=== PATIENT | male | born 1965 | race Caucasian/White ===

== ENCOUNTER → 2016-07-11 | Outpatient (CLI) | payer OTHER, MEDICAID ==
[2016-07-11 09:43] LABS: CHLORIDE,CL 107 mmol/L (98-110); SODIUM,NA 140 mmol/L (136-146)
== END ==
LOC: MW.CHFP 08:49
PROVIDERS: ATTEND Student in an Organized Health Care Education/Training Program
DX: E29.1 Testicular hypofunction (principal); R74.0 Nonspecific elevation of levels of transaminase and lactic acid dehydrogenase [LDH]
CPT/HCPCS: 36415; 80053; 84402; 84403

== ENCOUNTER → 2016-07-12 | Outpatient (CLI) | payer OTHER, MEDICAID ==
--- NOTE | 2016-07-12 16:42 | MR ---
EXAM DATE: 07/12/16 PATIENT'S AGE: 50 Patient: LILY OROPEZA Facility: [place], [place] Site . Site : 1965 Study: MRI Head [id number] 11:12:51 AM Ordering Physician: Gene Head Final Report: Indication: Tinnitus. Dizziness and giddiness. Comparison: None. Technique: Multiplanar T1 weighted sequence of the head. High-resolution T1 and T2 weighted sequences of the skullbase and IAC`s. Findings: Normal brain parenchymal morphology. No abnormal ventricular dilatation. Dedicated sequences of the skullbase and IAC`s demonstrates normal course of cranial nerves 7 and 8 from the root entry zones of the fundus of the IAC`s. Normal fluid signal within the cochlea and vestibule. Normal root entry zone of the bilateral trigeminal nerves. No evidence of a mass within the cerebellopontine angles are IAC`s. Right mastoid effusion. Fluid within the right middle ear cavity. Impression: 1. Normal brain parenchymal morphology. 2. Dedicated sequences of the skullbase and IAC`s demonstrates normal course of the cranial nerves. No evidence of a mass within the cerebellopontine angles or IAC`s. 3. Right mastoid effusion. Fluid within the middle ear cavity Dictated by Aaron Mccabe MD @ Jul 12 2016 11:29AM (Electronic Signature) Report Signed by Proxy and Original Signed Document filed in the Medical Record. MTDD
== END ==
LOC: MW.MRI 09:55
PROVIDERS: ATTEND Otolaryngology
DX: H93.13 Tinnitus, bilateral (principal); R42 Dizziness and giddiness; H65.91 Unspecified nonsuppurative otitis media, right ear
CPT/HCPCS: 70551; 70551-26

== ENCOUNTER → 2016-07-16 | Outpatient (CLI) | payer OTHER, MEDICAID | LOC: MW.CHENT 12:19 | PROVIDERS: ATTEND Otolaryngology | DX: R42 Dizziness and giddiness (principal) | CPT/HCPCS: 36415; 85025 ==

== ENCOUNTER 2016-07-25 08:23 | Day surgery (SDC) | payer MEDICAID, OTHER ==
--- NOTE | 2016-07-25 07:58 | PCM.HPR ---
H & P Addendum review - H & P Addendum Review Date of Original H & P: 07/16/16 Date Reviewed: 07/25/16 Time Reviewed: 09:45 Patient was examined: No Changes
[~2016-07-25 08:23] MED LIST: Lidocaine 2% 5 ML SDV ONE; Midazolam 1 MG/ML 2 ML SDV ONE; Ondansetron 4 MG/2 ML SDV ONE; Propofol 200 MG/20 ML SDV ONE; fentaNYL 250 MCG/5 ML SDV ONE
[2016-07-25] MEDS ORDERED: Lactated Ringers 1,000 ML IV SCH (08:45)
--- NOTE | 2016-07-25 08:55 | PCM.PREANE ---
Preanesthetic Assessment - Anesthesia/Transfusion/Family Hx Anesthesia History: Prior Anesthesia Without Reaction Family History of Anesthesia Reaction: No Transfusion History: No Prior Transfusion(s) - Review of Systems General: No Symptoms Pulmonary: No Symptoms Cardiovascular: No Symptoms Gastrointestinal: No symptoms Neurological: No Symptoms Other: Reports: None - Physical Assessment NPO Status Date: 07/24/16 O2 Sat by Pulse Oximetry: 95 Respiratory Rate: 18 Vital Signs: Last Vital Signs Temp 36.2 C 07/25/16 08:39 Pulse 86 07/25/16 08:39 Resp 18 07/25/16 08:39 BP 116/61 07/25/16 08:39 Pulse Ox 95 07/25/16 08:39 Height: 1.73 m Weight: 123.377 kg ASA Class: 2 Mental Status: Alert & Oriented x3 Airway Class: Mallampati = 3 Dentition: Reports: Normal Dentition ROM/Head Extension: Full Lungs: Clear to auscultation, Normal respiratory effort Cardiovascular: Regular Rate, Regular Rhythm - Allergies Allergies/Adverse Reactions: Allergies Allergy/AdvReac Type Severity Reaction Status Date / Time Penicillins Allergy Swelling Verified 06/05/14 17:35 Sulfa (Sulfonamide Allergy Diarrhea Verified 06/05/14 17:35 Antibiotics) - Anesthesia Plan Pre-Op Medication Ordered: None - Acknowledgements Anesthesia Type Planned: General Anesthesia Pt an Appropriate Candidate for the Planned Anesthesia: Yes Alternatives and Risks of Anesthesia Discussed w Pt/Guardian: Yes Pt/Guardian Understands and Agrees with Anesthesia Plan: Yes Additional Comments: LMA or ETT for airway patency PreAnesthesia Questionnaire - Past Health History Medical/Surgical History: Denies Medical/Surgical History HEENT History: Reports: Allergic rhinitis, Sinusitis Other HEENT History: wears glasses, Cardiovascular History: Reports: High cholesterol, Hypertension Respiratory History: Reports: Asthma, Sleep apnea Other Respiratory History: uses CPAP Gastrointestinal History: Reports: GERD Other Gastrointestinal History: occasional gastric reflux Musculoskeletal History: Reports: Back pain, chronic Neurological History: Reports: Migraines, Vertigo Psychiatric History: Reports: Anxiety, Depression Endocrine/Metabolic History: Reports: Obesity/BMI 30+ Dermatologic History: Reports: Other (see below) Other Dermatologic History: rash to groin area - Past Surgical History Head Surgeries/Procedures: Reports: None HEENT Surgical History: Reports: Eye surgery Other HEENT Surgeries/Procedures: hx of corrective eye surgery Musculoskeletal Surgical History: Reports: Other (see below) Other Musculoskeletal Surgeries/Procedures:: hx wrist surgery - SUBSTANCE USE Smoking Status *Q: Never Smoker Second Hand Smoke Exposure: No Days Per Week of Alcohol Use: 0 Recreational Drug Use History: No Recreational Drug Last Use: last smoked marijuana in 1992 - HOME MEDS Home Medications: Home Meds Ascorbic Acid [Vitamin C] 1,000 mg PO DAILY 07/23/16 [History] Fish Oil/[place]-3 Fatty Acids [Fish Oil 1,000 MG] 1,000 mg PO DAILY 07/23/16 [ History] Fluticasone Propionate [Flonase Allergy Relief] 2 spray NASBOTH DAILY 07/23/16 [ History] Losartan/Hydrochlorothiazide [Losartan-HCTZ 50-12.5 MG] 1 tab PO DAILY 07/23/16 [History] Lutein 10 mg PO DAILY 07/23/16 [History] Milk Thistle 1,000 mg PO DAILY 07/23/16 [History] - CURRENT (IN HOUSE) MEDS Current Meds: Current Medications Lactated Ringer's (Ringers, Lactated) 1,000 mls @ 125 mls/hr IV ASDIRECTED [facility] Last Admin: 07/25/16 08:52 Dose: 125 mls/hr Discontinued Medications Fentanyl (Sublimaze) Confirm Administered Dose 250 mcg .ROUTE .STK-MED ONE Stop: 07/25/16 07:28 Lidocaine (Xylocaine-Mpf 2%) Confirm Administered Dose 5 ml .ROUTE .STK-MED ONE Stop: 07/25/16 07:28 Midazolam HCl (Versed 1 Mg/Ml) Confirm Administered Dose 2 mg .ROUTE .STK-MED ONE Stop: 07/25/16 07:28 Ondansetron HCl (Zofran) Confirm Administered Dose 4 mg .ROUTE .STK-MED ONE Stop: 07/25/16 07:28 Propofol (Diprivan 20 Ml) Confirm Administered Dose 200 mg .ROUTE .STK-MED ONE Stop: 07/25/16 07:28 Preanesthetic Assessment - ANESTHESIA/TRANSFUSION/FAMILY HX Family History of Anesthesia Reaction: No - PHYSICAL ASSESSMENT O2 Sat by Pulse Oximetry: 95 RR: 18 Vital Signs: Last Vital Signs Temp 36.2 C 07/25/16 08:39 Pulse 86 07/25/16 08:39 Resp 18 07/25/16 08:39 BP 116/61 07/25/16 08:39 Pulse Ox 95 07/25/16 08:39 Height: 1.73 m Weight: 123.377 kg - ALLERGIES Allergies/Adverse Reactions: Allergies Allergy/AdvReac Type Severity Reaction Status Date / Time Penicillins Allergy Swelling Verified 06/05/14 17:35 Sulfa (Sulfonamide Allergy Diarrhea Verified 06/05/14 17:35 Antibiotics)
--- NOTE | 2016-07-25 10:19 | PCM.OPNOTE ---
- General Post-Op/Procedure Note Date of Surgery/Procedure: 07/25/16 Condition: Good Free Text/Narrative:: Diagnosis: Right otitis media with effusion; hearing loss; tinnitus; vertigo Procedure: Right Myringotomy with Tympanostomy tube Surgeon : Adilene Mills MD Anesthesia: GA Anesthesiologist: Dr Douglas Date of procedure: 07/25/2016 Indications : Right otitis media with effusion. He developed otitis media subsequent to a URI. After an adequate period of observation - the middle ear fluid and his symptoms persisted. I counselled him the though tympanostomy tube will improve hearing in the Right ear - conductive element, the SNHL will persist. Effect on vertigo and tinnitus will be variable. He understands this. Findings : Right Hyperemic Tympanic membrane; Right middle ear - sero mucoid effusion. Operation Details: An informed consent for the procedure was obtained. A time out was performed and the patient was brought back to the operating room and laid supine on the operating room table. A head ring was placed. Anesthesia was administered with an LMA. The Right ear was addressed. Cerumen was cleared from the external auditory canal. An anterior inferior myringotomy incision was made in the pars tensa with a myringotomy knife. Findings are as described above. Middle ear effusion was suctioned and middle ear was irrigated with saline. An Cobos tympanostomy tube was placed with an alligator forceps. Ciprodex ear drops were instilled. A cotton wool wall was placed in the kayleen. Specimens: None IV fluids: 300 ml Blood products: None Disposition: PACU for recovery Follow up: In 1 week
[2016-07-25] MEDS ORDERED: Phenylephrine/Normal Saline 100 MCG/ML 10 ML Syringe ONE (10:24)
--- NOTE | 2016-07-25 12:19 | PCM.POSTAN ---
POST ANESTHESIA ASSESSMENT - MENTAL STATUS Mental Status: alert, oriented - RESPIRATORY Respiratory Status: respiratory rate WNL, airway patent - CARDIOVASCULAR CV Status: pulse rate WNL, blood pressure stable - GASTROINTESTINAL GI Status: no symptoms - POST OP HYDRATION Hydration Status: adequate & stable
--- NOTE | 2016-07-25 12:20 | PCM48HPAN ---
Post Anesthesia Note - EVALUATION WITHIN 48HRS OF ANESTHETIC Vital Signs in Normal Range: Yes Patient Participated in Evaluation: Yes Respiratory Function Stable: Yes Airway Patent: Yes Cardiovascular Function Stable: Yes Hydration Status Stable: Yes Pain Control Satisfactory: Yes Nausea and Vomiting Control Satisfactory: Yes Mental Status Recovered: Yes
[2016-07-25 12:37] VITALS: BP 106/60
== END 2016-07-25 12:25 | disposition home or self-care (01) ==
LOC: MW.SDS 08:23
PROVIDERS: ATTEND Otolaryngology
PROC: 099500Z Drainage of Right Middle Ear with Drainage Device, Open Approach (ICD-10-PCS; principal; 2016-07-25)
DX: H65.91 Unspecified nonsuppurative otitis media, right ear (principal); F41.9 Anxiety disorder, unspecified; F32.9 Major depressive disorder, single episode, unspecified; J45.909 Unspecified asthma, uncomplicated; H91.90 Unspecified hearing loss, unspecified ear; E78.00 Pure hypercholesterolemia, unspecified; I10 Essential (primary) hypertension; G47.33 Obstructive sleep apnea (adult) (pediatric); Z88.0 Allergy status to penicillin; Z88.2 Allergy status to sulfonamides; Z79.51 Long term (current) use of inhaled steroids; Z79.899 Other long term (current) drug therapy; Z98.890 Other specified postprocedural states
CPT/HCPCS: 69436; J2250; J2405; J3010; J7120; 00126; J2704

== ENCOUNTER 2019-09-18 15:52 | Emergency (ER) | payer OTHER, BC ==
[2019-09-18] MEDS ORDERED: Sodium Chloride 0.9% 1,000 ML IV ONE (16:32)
--- NOTE | 2019-09-18 16:39 | EDM.PDOC ---
ED HPI GENERAL MEDICAL PROBLEM - General Chief Complaint: General Stated Complaint: FEVER/CHILL/ACHES Time Seen by Provider: 09/18/19 15:53 Source of Information: Reports: Patient History Limitations: Reports: No Limitations - History of Present Illness INITIAL COMMENTS - FREE TEXT/NARRATIVE: 53-year-old male presents emergency room 10 days of nausea and diarrhea. Patient thinks he ate some bad food in [place]. Patient denies cough Duration: Day(s): (10) Location: Reports: Abdomen Quality: Reports: Ache Severity: Moderate Improves with: Reports: None Worsens with: Reports: None Context: Reports: Activity Associated Symptoms: Reports: No Other Symptoms middle abd Pain Score (Numeric/FACES): 5 - Related Data Allergies Allergy/AdvReac Type Severity Reaction Status Date / Time Penicillins Allergy Swelling Verified 09/18/19 16:31 Sulfa (Sulfonamide Allergy Diarrhea Verified 09/18/19 16:31 Antibiotics) Home Meds: Home Meds Ascorbic Acid [Vitamin C] 1,000 mg PO DAILY 07/23/16 [History] Fish Oil/[place]-3 Fatty Acids [Fish Oil 1,000 MG] 1,000 mg PO DAILY 07/23/16 [ History] Fluticasone Propionate [Flonase Allergy Relief] 2 spray NASBOTH DAILY 07/23/16 [ History] Lutein 10 mg PO DAILY 07/23/16 [History] Milk Thistle 1,000 mg PO DAILY 07/23/16 [History] Ciprofloxacin [Cipro] 750 mg PO BID #14 tab 09/18/19 [Rx] Past Medical History - Past Health History Medical/Surgical History: Denies Medical/Surgical History HEENT History: Reports: Allergic Rhinitis, Sinusitis Other HEENT History: wears glasses, Cardiovascular History: Reports: High Cholesterol, Hypertension Respiratory History: Reports: Asthma, Sleep Apnea Other Respiratory History: uses CPAP Gastrointestinal History: Reports: GERD Other Gastrointestinal History: occasional gastric reflux Musculoskeletal History: Reports: Back Pain, Chronic Neurological History: Reports: Migraines, Vertigo Psychiatric History: Reports: Anxiety, Depression Endocrine/Metabolic History: Reports: Obesity/BMI 30+ Dermatologic History: Reports: Other (See Below) Other Dermatologic History: rash to groin area - Past Surgical History HEENT Surgical History: Reports: Eye Surgery Musculoskeletal Surgical History: Reports: Other (See Below) ED ROS GENERAL - Review of Systems Review Of Systems: See Below Constitutional: Reports: No Symptoms HEENT: Reports: No Symptoms Respiratory: Reports: No Symptoms Cardiovascular: Reports: No Symptoms Endocrine: Reports: No Symptoms GI/Abdominal: Reports: No Symptoms : Reports: No Symptoms Musculoskeletal: Reports: No Symptoms Skin: Reports: No Symptoms Neurological: Reports: No Symptoms Psychiatric: Reports: No Symptoms Hematologic/Lymphatic: Reports: No Symptoms Immunologic: Reports: No Symptoms ED EXAM, GENERAL - Physical Exam Exam: See Below Exam Limited By: No Limitations General Appearance: Alert, WD/WN, No Apparent Distress Eye Exam: Bilateral Eye: Normal Fundi, Normal Inspection, PERRL, Proptosis Ears: Normal External Exam, Normal Canal, Hearing Grossly Normal, Normal TMs Throat/Mouth: Normal Inspection, Normal Lips, Normal Teeth Head: Atraumatic, Normocephalic Neck: Normal Inspection, Supple, Non-Tender, Full Range of Motion Respiratory/Chest: No Respiratory Distress, Lungs Clear, Normal Breath Sounds, No Accessory Muscle Use, Chest Non-Tender Cardiovascular: Normal Peripheral Pulses, Regular Rate, Rhythm, No JVD, No Murmur GI/Abdominal: Normal Bowel Sounds, Soft, Non-Tender, No Organomegaly, No Distention, No Abnormal Bruit, No Mass Back Exam: Normal Inspection, Full Range of Motion Extremities: Normal Inspection, Normal Range of Motion Neurological: Alert, Oriented, CN II-XII Intact, Normal Cognition, Normal Reflexes, No Motor/Sensory Deficits Psychiatric: Normal Affect, Normal Mood Skin Exam: Warm, Dry, Intact, Normal Color, No Rash Lymphatic: No Adenopathy Course - Vital Signs Last Recorded V/S: Last Vital Signs Temp 97.2 F 09/18/19 16:29 Pulse 95 09/18/19 18:05 Resp 16 09/18/19 18:05 BP 123/60 09/18/19 18:05 Pulse Ox 96 09/18/19 18:05 - Orders/Labs/Meds Labs: Laboratory Tests 09/18/19 09/18/19 09/18/19 Range/Units 16:40 16:40 18:00 WBC 7.84 (4.0-11.0) K/uL RBC 4.36 L (4.50-5.90) M/uL Hgb 14.6 (13.0-17.0) g/dL Hct 43.7 (38.0-50.0) % MCV 100.2 H (80.0-98.0) fL MCH 33.5 H (27.0-32.0) pg MCHC 33.4 (31.0-37.0) g/dL RDW Std Deviation 47.9 (28.0-62.0) fl RDW Coeff of Darcy 13 (11.0-15.0) % Plt Count 164 (150-400) K/uL MPV 11.10 (7.40-12.00) fL Neut % (Auto) 49.6 (48.0-80.0) % Lymph % (Auto) 37.1 (16.0-40.0) % [place] % (Auto) 10.6 (0.0-15.0) % Eos % (Auto) 2.3 (0.0-7.0) % Baso % (Auto) 0.4 (0.0-1.5) % Neut # (Auto) 3.9 (1.4-5.7) K/uL Lymph # (Auto) 2.9 H (0.6-2.4) K/uL [place] # (Auto) 0.8 (0.0-0.8) K/uL Eos # (Auto) 0.2 (0.0-0.7) K/uL Baso # (Auto) 0.0 (0.0-0.1) K/uL Nucleated RBC % 0.0 /100WBC Nucleated RBCs # 0 K/uL Sodium 136 (136-148) mmol/L Potassium 3.9 (3.5-5.1) mmol/L Chloride 100 (98-107) mmol/L Carbon Dioxide 25.4 (21.0-32.0) mmol/L BUN 16 (7.0-18.0) mg/dL Creatinine 1.0 (0.8-1.3) mg/dL Est Cr Clr Drug Dosing 81.70 mL/min Estimated GFR (MDRD) > 60.0 ml/min Glucose 148 H (74-106) mg/dL Calcium 8.7 (8.5-10.1) mg/dL Total Bilirubin 0.3 (0.2-1.0) mg/dL AST 71 H (15-37) IU/L ALT 145 H (14-63) IU/L Alkaline Phosphatase 61 (46-116) U/L Total Protein 7.3 (6.4-8.2) g/dL Albumin 3.5 (3.4-5.0) g/dL Globulin 3.8 (2.6-4.0) g/dL Albumin/Globulin Ratio 0.9 (0.9-1.6) Urine Color YELLOW Urine Appearance CLEAR Urine pH 6.0 (5.0-8.0) Ur Specific [place] 1.025 (1.001-1.035) Urine Protein NEGATIVE (NEGATIVE) mg/dL Urine Glucose (UA) NEGATIVE (NEGATIVE) mg/dL Urine Ketones NEGATIVE (NEGATIVE) mg/dL Urine Occult Blood NEGATIVE (NEGATIVE) Urine Nitrite NEGATIVE (NEGATIVE) Urine Bilirubin NEGATIVE (NEGATIVE) Urine Urobilinogen 0.2 (<2.0) EU/dL Ur Leukocyte Esterase NEGATIVE (NEGATIVE) SARS-CoV-2 RNA (RT-PCR) (NEGATIVE) 09/18/19 Range/Units 18:05 WBC (4.0-11.0) K/uL RBC (4.50-5.90) M/uL Hgb (13.0-17.0) g/dL Hct (38.0-50.0) % MCV (80.0-98.0) fL MCH (27.0-32.0) pg MCHC (31.0-37.0) g/dL RDW Std Deviation (28.0-62.0) fl RDW Coeff of Darcy (11.0-15.0) % Plt Count (150-400) K/uL MPV (7.40-12.00) fL Neut % (Auto) (48.0-80.0) % Lymph % (Auto) (16.0-40.0) % [place] % (Auto) (0.0-15.0) % Eos % (Auto) (0.0-7.0) % Baso % (Auto) (0.0-1.5) % Neut # (Auto) (1.4-5.7) K/uL Lymph # (Auto) (0.6-2.4) K/uL [place] # (Auto) (0.0-0.8) K/uL Eos # (Auto) (0.0-0.7) K/uL Baso # (Auto) (0.0-0.1) K/uL Nucleated RBC % /100WBC Nucleated RBCs # K/uL Sodium (136-148) mmol/L Potassium (3.5-5.1) mmol/L Chloride (98-107) mmol/L Carbon Dioxide (21.0-32.0) mmol/L BUN (7.0-18.0) mg/dL Creatinine (0.8-1.3) mg/dL Est Cr Clr Drug Dosing mL/min Estimated GFR (MDRD) ml/min Glucose (74-106) mg/dL Calcium (8.5-10.1) mg/dL Total Bilirubin (0.2-1.0) mg/dL AST (15-37) IU/L ALT (14-63) IU/L Alkaline Phosphatase (46-116) U/L Total Protein (6.4-8.2) g/dL Albumin (3.4-5.0) g/dL Globulin (2.6-4.0) g/dL Albumin/Globulin Ratio (0.9-1.6) Urine Color Urine Appearance Urine pH (5.0-8.0) Ur Specific [place] (1.001-1.035) Urine Protein (NEGATIVE) mg/dL Urine Glucose (UA) (NEGATIVE) mg/dL Urine Ketones (NEGATIVE) mg/dL Urine Occult Blood (NEGATIVE) Urine Nitrite (NEGATIVE) Urine Bilirubin (NEGATIVE) Urine Urobilinogen (<2.0) EU/dL Ur Leukocyte Esterase (NEGATIVE) SARS-CoV-2 RNA (RT-PCR) NEGATIVE (NEGATIVE) Meds: Medications Discontinued Medications Generic Name Dose Route Start Last Admin Trade Name Micheletq PRN Reason Stop Dose Admin Ciprofloxacin 500 mg 09/18/19 18:38 Ciprofloxacin Hcl PO 09/18/19 18:39 ONETIME ONE Sodium Chloride 1,000 mls @ 1,000 mls/hr 09/18/19 16:32 09/18/19 16:41 Normal Saline IV 09/18/19 17:31 1,000 mls/hr .Bolus ONE Administration Departure - Departure Time of Disposition: 18:43 Disposition: Home, Self-Care 01 Clinical Impression: Travelers' diarrhea - Discharge Information Prescriptions: Ciprofloxacin [Cipro] 750 mg PO BID #14 tab Referrals: PCP,None [Primary Care Provider] - Forms: ED Department Discharge Sepsis Event Note - Evaluation Sepsis Screening Result: No Definite Risk - Focused Exam Vital Signs: Vital Signs Temp Pulse Resp BP Pulse Ox 09/18/19 18:05 95 16 123/60 96 09/18/19 17:21 71 16 94 L 09/18/19 16:29 97.2 F 79 16 141/87 H 95 Date Exam was Performed: 09/18/19 Time Exam was Performed: 18:43
[2019-09-18 17:14] LABS: BLOOD UREA NITROGEN,BUN 16 mg/dL (7.0-18.0); CARBON DIOXIDE,CO2 25.4 mmol/L (21.0-32.0); CHLORIDE,CL 100 mmol/L (98-107); GLUCOSE RANDOM 148 mg/dL (74-106); POTASSIUM,K 3.9 mmol/L (3.5-5.1); SODIUM,NA 136 mmol/L (136-148)
[2019-09-18] MEDS ORDERED: Ciprofloxacin 500 MG Tab PO ONE (18:38)
[2019-09-18 19:08] VITALS: BP 104/61; PULSE 72
== END 2019-09-18 19:08 | disposition home or self-care (01) ==
LOC: MW.ED 15:52
DX: R19.7 Diarrhea, unspecified (principal); I10 Essential (primary) hypertension; E78.00 Pure hypercholesterolemia, unspecified; J45.909 Unspecified asthma, uncomplicated; E66.9 Obesity, unspecified; Z68.36 Body mass index [BMI] 36.0-36.9, adult; Z88.0 Allergy status to penicillin; Z88.1 Allergy status to other antibiotic agents; Z79.899 Other long term (current) drug therapy
CPT/HCPCS: 80053; 81003; 85025; 87635; 96360; 96361; 99284; A9270; J7030; 99283; U0002

== ENCOUNTER 2020-07-25 13:00 | Emergency (ER) | payer OTHER ==
--- NOTE | 2020-07-25 13:26 | PCM.EKG ---
#1 Interpretation EKG Date: 07/25/20 Time: 13:25 Rhythm: NSR Rate (Beats/Min): 78 ST-T: Normal
[2020-07-25] MEDS ORDERED: Sodium Chloride 0.9% 10 ML Syringe FLUSH PRN (13:45)
[2020-07-25] MEDS ORDERED: Sodium Chloride 0.9% 1,000 ML IV ONE (13:45)
[2020-07-25] MEDS ORDERED: Sodium Chloride 0.9% 2.5 ML Syringe FLUSH PRN (13:45)
[2020-07-25] MEDS ORDERED: Ondansetron 4 MG/2 ML SDV IVPUSH ONE (13:46)
--- NOTE | 2020-07-25 13:50 | EDM.PDOC ---
ED HPI GENERAL MEDICAL PROBLEM - General Chief Complaint: Respiratory Problem Stated Complaint: COUGHING SOB CHEST PAIN Time Seen by Provider: 07/25/20 13:10 Source of Information: Reports: Patient History Limitations: Reports: No Limitations - History of Present Illness INITIAL COMMENTS - FREE TEXT/NARRATIVE: HISTORY AND PHYSICAL: History of present illness: The patient is a 54-year-old male who presents to the emergency department with complaints of cough, sore throat, diarrhea, sinus fevers chest pain, chills, fatigue, decreased appetite, and nausea. The patient states that on Saturday he was cleaning garbage in his yard and noticed droppings. Started with the symptoms on Saturday. He states his cough is a dry cough. He took DayQuil for his throat sore throat on Saturday which did not help. He states his diarrhea seems to get worse with each day. He has not taken any medication for his diarrhea. He is unable to use his CPAP due to difficulty breathing through his nose. He has nausea and is unable to eat, however, he is trying to take in fluids. He states that on Saturday he had some mild sternal chest pain, which he did not take any medication for. Patient was seen at the [facility] this morning and had a Covid test, which was negative. Review of systems: As per history of present illness and below otherwise all systems reviewed and negative. Past medical history: As per history of present illness and as reviewed below otherwise noncontributory. Surgical history: As per history of present illness and as reviewed below otherwise noncontributor y. Social history: See social history for further information Family history: As per history of present illness and as reviewed below otherwise noncontributory. Physical exam: General: Well developed and well nourished. Alert and orientated x 3. Nontoxic in appearance and in no acute distress. Vital signs are stable and have been reviewed by me. Nursing notes were reviewed. HEENT: Atraumatic, normocephalic, pupils equal and reactive bilaterally, negative for conjunctival pallor or scleral icterus, mucous membranes moist, TMs normal bilaterally, throat clear, neck supple, nontender, trachea midline. Nasal mucosa edematous with increase redness. No drooling or trismus noted. No meningeal signs. No hot potato voice noted. Lungs: Clear to auscultation bilaterally. No wheezes, rales, or rhonchi. Chest nontender. Normal work of breathing, no accessory muscles used. Heart: S1S2, regular rate and rhythm without overt murmur, gallops, or rubs. No JVD. No peripheral edema Abdomen: Soft, nondistended, nontender. Normoactive bowel sounds. Negative for masses or costovertebral tenderness. Pelvis: Stable nontender. Hematologic: No petechiae or purpra. Mucosa appropriate color and normal nail bed color and refill. Extremities: Atraumatic, moves all extremities per self without difficulty or deficits, negative for cords or calf pain. Neurovascular unremarkable. Neuro: Awake, alert, oriented. Cranial nerves II through XII unremarkable. Cerebellum unremarkable. Motor and sensory unremarkable throughout. Exam nonfocal. Psychiatric: Mood and affect are appropriate. Normal thought process. Answering questions appropriately. Notes: *This patient was seen and evaluated during the 2019 SARS-CoV-2 novel coronavirus pandemic period. Community viral transmission is ongoing at time of this encounter and the emergency department is operating under pandemic response procedures. After discussion with patient and exam patient is agreeable to labs, x-ray, EKG, IV fluids and medication. His glucose is 433 the patient states that about 2 months ago he was told that he was prediabetic. He has been attempting to lose weight and eat healthy. His AST is 118 his ALT is 180. The patient states that he has been dealing with a fatty liver for over a year and attempting to get his enzymes down naturally. The patient's troponin is < 0.050. I have ordered an A1c. Results discussed with the patient. 10 units of regular insulin will be given subcu to patient. Patient's glucse is 342 post 10 units of regular insulin. Patient is stable for discharge. I have talked with the patient about today's findings, in addition to providing specific details for plan of care. Reassessment at the time of disposition demonstrates that the patient is in no acute distress. The patient is stable for discharge, counseling was provided and we discussed in great detail signs and symptoms that would prompt them to return to the Emergency Department. Medication, follow up and supportive care measures were reviewed and discussed. Voices understanding and is agreeable to plan of care. Denies any further questions or concerns at this time. Diagnostics: CBC, CMP, strep, troponin, EKG, CXR, A1c Therapeutics: IV fluids, Zofran, Regular insulin 10 units Prescription:Metformin 500mg BID & Doxycycline 100mg BID Impression: Diabetes Type II, New Onset Sinusitis Plan: 1. You were evaluated today on an emergent basis. Your glucose was 433 and A1c was 9. This indicates a new onset of Type II Diabetes. [facility]. Take you Metformin twice daily. This can cause more frequent stools, but your body will get use to the medication. You need to eat a healthy diet. This means staying away from breads and sugar. You are also being treated for sinusitis with Doxycycline twice daily. Take the medication as directed. 2. You can alternate Tylenol and ibuprofen as needed for pain and fever management. 3. We encourage you to follow up with your primary care provider and/or recommended specialist in the next few days for re-evaluation and further care/management. 4. If your symptoms should worsen, new symptoms develop or any of the signs and symptoms we discussed should arise please return to the emergency room or call 911 (if needed). Definitive disposition and diagnosis as appropriate pending reevaluation and review of above. Throat Pain Score (Numeric/FACES): 4 - Related Data Allergies Allergy/AdvReac Type Severity Reaction Status Date / Time Penicillins Allergy Swelling Verified 07/25/20 13:20 Sulfa (Sulfonamide Allergy Diarrhea Verified 07/25/20 13:20 Antibiotics) Home Meds: Home Meds Doxycycline [Vibramycin] 100 mg PO BID 7 Days #14 cap 07/25/20 [Rx] metFORMIN [Glucophage XR] 500 mg PO BIDMEALS 30 Days #60 tab.er 07/25/20 [Rx] Past Medical History - Past Health History Medical/Surgical History: Denies Medical/Surgical History HEENT History: Reports: Allergic Rhinitis, Sinusitis Other HEENT History: wears glasses, Cardiovascular History: Reports: High Cholesterol, Hypertension Respiratory History: Reports: Asthma, Sleep Apnea Other Respiratory History: uses CPAP Gastrointestinal History: Reports: GERD Other Gastrointestinal History: occasional gastric reflux Musculoskeletal History: Reports: Back Pain, Chronic Neurological History: Reports: Migraines, Vertigo Psychiatric History: Reports: Anxiety, Depression Endocrine/Metabolic History: Reports: Obesity/BMI 30+ Dermatologic History: Reports: Other (See Below) Other Dermatologic History: rash to groin area - Infectious Disease History Infectious Disease History: Reports: Chicken Pox - Past Surgical History Head Surgeries/Procedures: Reports: None HEENT Surgical History: Reports: Eye Surgery Other HEENT Surgeries/Procedures: hx of corrective eye surgery Musculoskeletal Surgical History: Reports: Other (See Below) Other Musculoskeletal Surgeries/Procedures:: hx wrist surgery Social & Family History - Family History Family Medical History: No Pertinent Family History - Tobacco Use Tobacco Use Status *Q: Unknown Ever Used Tobacco - Caffeine Use Caffeine Use: Reports: None - Recreational Drug Use Recreational Drug Use: No ED ROS GENERAL - Review of Systems Review Of Systems: Comprehensive ROS is negative, except as noted in HPI. ED EXAM, GENERAL - Physical Exam Exam: See Below (Dictation) Course - Vital Signs Last Recorded V/S: Last Vital Signs Temp 98.3 F 07/25/20 13:20 Pulse 83 07/25/20 13:20 Resp 17 07/25/20 13:20 BP 127/72 07/25/20 13:20 Pulse Ox 95 07/25/20 13:20 - Orders/Labs/Meds Orders: Active Orders 24 hr Category Date Time Status Blood Glucose Check, Bedside [RC] ONETIME Care 07/25/20 15:34 Active EKG 12 Lead [EKG Documentation Completion] [RC] STAT Care 07/25/20 13:48 Active Dextrose 50% in Water Med 07/25/20 15:34 Active 50 ml IV ASDIRECTED PRN Glucagon,Human Recombinant [GlucaGen] Med 07/25/20 15:34 Active 1 mg IM ASDIRECTED PRN Sodium Chloride 0.9% [Saline Flush] Med 07/25/20 13:45 Active 10 ml FLUSH ASDIRECTED PRN Sodium Chloride 0.9% [Saline Flush] Med 07/25/20 13:45 Active 2.5 ml FLUSH ASDIRECTED PRN Saline Lock Insert [OM.PC] Stat Oth 07/25/20 13:45 Ordered Medication Orders Dextrose/Water (50% Dextrose In Water 50 Ml Syringe) 50 ml IV ASDIRECTED PRN PRN Reason: Hypoglycemia Glucagon (Glucagon,Human Recombinant 1 Mg Vial) 1 mg IM ASDIRECTED PRN PRN Reason: Hypoglycemia Sodium Chloride (Sodium Chloride 0.9% 10 Ml Syringe) 10 ml FLUSH ASDIRECTED PRN PRN Reason: Keep Vein Open Last Admin: 07/25/20 14:05 Dose: 10 ml Documented by: [id number] Sodium Chloride (Sodium Chloride 0.9% 2.5 Ml Syringe) 2.5 ml FLUSH ASDIRECTED PRN PRN Reason: Keep Vein Open Last Admin: 07/25/20 14:05 Dose: 2.5 ml Documented by: [id number] Labs: Laboratory Tests 07/25/20 07/25/20 07/25/20 Range/Units 13:40 14:09 14:09 WBC 7.66 (4.0-11.0) K/uL RBC 4.08 L (4.50-5.90) M/uL Hgb 13.9 (13.0-17.0) g/dL Hct 40.9 (38.0-50.0) % MCV 100.2 H (80.0-98.0) fL MCH 34.1 H (27.0-32.0) pg MCHC 34.0 (31.0-37.0) g/dL RDW Std Deviation 47.2 (28.0-62.0) fl RDW Coeff of Darcy 13 (11.0-15.0) % Plt Count 162 (150-400) K/uL MPV 11.80 (7.40-12.00) fL Neut % (Auto) 46.7 L (48.0-80.0) % Lymph % (Auto) 41.6 H (16.0-40.0) % Jenkins % (Auto) 9.8 (0.0-15.0) % Eos % (Auto) 1.6 (0.0-7.0) % Baso % (Auto) 0.3 (0.0-1.5) % Neut # (Auto) 3.6 (1.4-5.7) K/uL Lymph # (Auto) 3.2 H (0.6-2.4) K/uL Jenkins # (Auto) 0.8 (0.0-0.8) K/uL Eos # (Auto) 0.1 (0.0-0.7) K/uL Baso # (Auto) 0.0 (0.0-0.1) K/uL Nucleated RBC % 0.0 /100WBC Nucleated RBCs # 0 K/uL Sodium 132 L (136-148) mmol/L Potassium 4.5 (3.5-5.1) mmol/L Chloride 98 (98-107) mmol/L Carbon Dioxide 25.4 (21.0-32.0) mmol/L BUN 16 (7.0-18.0) mg/dL Creatinine 1.2 (0.8-1.3) mg/dL Est Cr Clr Drug Dosing 67.29 mL/min Estimated GFR (MDRD) > 60.0 ml/min Glucose 433 H (74-106) mg/dL Hemoglobin A1c (4.5 - 6.2) % Calcium 9.0 (8.5-10.1) mg/dL Total Bilirubin 0.4 (0.2-1.0) mg/dL AST 118 H (15-37) IU/L ALT 183 H (14-63) IU/L Alkaline Phosphatase 70 (46-116) U/L Troponin I < 0.050 (0.000-0.056) ng/mL Total Protein 7.2 (6.4-8.2) g/dL Albumin 3.3 L (3.4-5.0) g/dL Globulin 3.9 (2.6-4.0) g/dL Albumin/Globulin Ratio 0.9 (0.9-1.6) Group A Strep (PCR) NOT DETECTED (NOT DETECT) 07/25/20 Range/Units 14:09 WBC (4.0-11.0) K/uL RBC (4.50-5.90) M/uL Hgb (13.0-17.0) g/dL Hct (38.0-50.0) % MCV (80.0-98.0) fL MCH (27.0-32.0) pg MCHC (31.0-37.0) g/dL RDW Std Deviation (28.0-62.0) fl RDW Coeff of Darcy (11.0-15.0) % Plt Count (150-400) K/uL MPV (7.40-12.00) fL Neut % (Auto) (48.0-80.0) % Lymph % (Auto) (16.0-40.0) % Jenkins % (Auto) (0.0-15.0) % Eos % (Auto) (0.0-7.0) % Baso % (Auto) (0.0-1.5) % Neut # (Auto) (1.4-5.7) K/uL Lymph # (Auto) (0.6-2.4) K/uL Jenkins # (Auto) (0.0-0.8) K/uL Eos # (Auto) (0.0-0.7) K/uL Baso # (Auto) (0.0-0.1) K/uL Nucleated RBC % /100WBC Nucleated RBCs # K/uL Sodium (136-148) mmol/L Potassium (3.5-5.1) mmol/L Chloride (98-107) mmol/L Carbon Dioxide (21.0-32.0) mmol/L BUN (7.0-18.0) mg/dL Creatinine (0.8-1.3) mg/dL Est Cr Clr Drug Dosing mL/min Estimated GFR (MDRD) ml/min Glucose (74-106) mg/dL Hemoglobin A1c 9.0 H (4.5 - 6.2) % Calcium (8.5-10.1) mg/dL Total Bilirubin (0.2-1.0) mg/dL AST (15-37) IU/L ALT (14-63) IU/L Alkaline Phosphatase (46-116) U/L Troponin I (0.000-0.056) ng/mL Total Protein (6.4-8.2) g/dL Albumin (3.4-5.0) g/dL Globulin (2.6-4.0) g/dL Albumin/Globulin Ratio (0.9-1.6) Group A Strep (PCR) (NOT DETECT) Meds: Medications Generic Name Dose Route Start Last Admin Trade Name Freq PRN Reason Stop Dose Admin Dextrose/Water 50 ml 07/25/20 15:34 50% Dextrose In Water 50 Ml Syringe IV ASDIRECTED PRN Hypoglycemia Glucagon 1 mg 07/25/20 15:34 Glucagon,Human Recombinant 1 Mg Vial IM ASDIRECTED PRN Hypoglycemia Sodium Chloride 10 ml 07/25/20 13:45 07/25/20 14:05 Sodium Chloride 0.9% 10 Ml Syringe FLUSH 10 ml ASDIRECTED PRN Administration Keep Vein Open Sodium Chloride 2.5 ml 07/25/20 13:45 07/25/20 14:05 Sodium Chloride 0.9% 2.5 Ml Syringe FLUSH 2.5 ml ASDIRECTED PRN Administration Keep Vein Open Discontinued Medications Generic Name Dose Route Start Last Admin Trade Name Yandel PRN Reason Stop Dose Admin Sodium Chloride 1,000 mls @ 999 mls/hr 07/25/20 13:45 07/25/20 14:04 Normal Saline IV 07/25/20 14:45 999 mls/hr .Bolus ONE Administration Insulin Human Regular 10 unit 07/25/20 15:34 07/25/20 15:51 Insulin Regular, Human 100 Units/Ml 10 Ml Vial SUBCUT 07/25/20 15:35 10 units ONETIME ONE Administration Protocol Ondansetron HCl 4 mg 07/25/20 13:46 07/25/20 14:04 Ondansetron 4 Mg/2 Ml Sdv IVPUSH 07/25/20 13:47 4 mg ONETIME ONE Administration Departure - Departure Time of Disposition: 16:32 Disposition: Home, Self-Care 01 Condition: Good Clinical Impression: Diabetes Qualifiers: Diabetes mellitus type: type 2 Sinusitis Qualifiers: Sinusitis location: maxillary - Discharge Information *PRESCRIPTION DRUG MONITORING PROGRAM REVIEWED*: Not Applicable *COPY OF PRESCRIPTION DRUG MONITORING REPORT IN PATIENT MICHELLE: Not Applicable Prescriptions: metFORMIN [Glucophage XR] 500 mg PO BIDMEALS 30 Days #60 tab.er Doxycycline [Vibramycin] 100 mg PO BID 7 Days #14 cap Referrals: Josafat Arevalo [employer] [Primary Care Provider] - Forms: ED Department Discharge Additional Instructions: The following information is given to patients seen in the emergency department who are being discharged to home. This information is to outline your options for follow-up care. We provide all patients seen in our emergency department with a follow-up referral. The need for follow-up, as well as the timing and circumstances, are variable depending upon the specifics of your emergency department visit. If you don't have a primary care physician on staff, we will provide you with a referral. We always advise you to contact your personal physician following an emergency department visit to inform them of the circumstance of the visit and for follow-up with them and/or the need for any referrals to a consulting specialist. The emergency department will also refer you to a specialist when appropriate. This referral assures that you have the opportunity for follow-up care with a specialist. All of these measure are taken in an effort to provide you with optimal care, which includes your follow-up. Under all circumstances we always encourage you to contact your private physician who remains a resource for coordinating your care. When calling for follow-up care, please make the office aware that this follow-up is from your recent emergency room visit. If for any reason you are refused follow-up, please contact the [facility] Emergency Department at and asked to speak to the emergency department charge nurse. [facility] - Primary Care [address] [place] [id number] [facility] [address] [place] [address] Plan: 1. You were evaluated today on an emergent basis. Your glucose was 433 and A1c was 9. This indicates a new onset of Type II Diabetes. [facility] the [facility]. Take you Metformin twice daily. This can cause more frequent stools, but your body will get use to the medication. You need to eat a healthy diet. This means staying away from breads and sugar. You are also being treated for sinusitis with Doxycycline twice daily. Take the medication as directed. 2. You can alternate Tylenol and ibuprofen as needed for pain and fever management. 3. We encourage you to follow up with your primary care provider and/or recommended specialist in the next few days for re-evaluation and further care/management. 4. If your symptoms should worsen, new symptoms develop or any of the signs and symptoms we discussed should arise please return to the emergency room or call 911 (if needed). Sepsis Event Note (ED) - Evaluation Sepsis Screening Result: No Definite Risk - Focused Exam Vital Signs: Vital Signs Temp Pulse Resp BP Pulse Ox 07/25/20 13:20 98.3 F 83 17 127/72 95 - My Orders Last 24 Hours: My Active Orders 07/25/20 13:45 Sodium Chloride 0.9% [Saline Flush] 10 ml FLUSH ASDIRECTED PRN Sodium Chloride 0.9% [Saline Flush] 2.5 ml FLUSH ASDIRECTED PRN Saline Lock Insert [OM.PC] Stat 07/25/20 13:48 EKG 12 Lead [EKG Documentation Completion] [RC] STAT 07/25/20 15:34 Blood Glucose Check, Bedside [RC] ONETIME Dextrose 50% in Water 50 ml IV ASDIRECTED PRN Glucagon,Human Recombinant [GlucaGen] 1 mg IM ASDIRECTED PRN - Assessment/Plan Last 24 Hours: My Active Orders 07/25/20 13:45 Sodium Chloride 0.9% [Saline Flush] 10 ml FLUSH ASDIRECTED PRN Sodium Chloride 0.9% [Saline Flush] 2.5 ml FLUSH ASDIRECTED PRN Saline Lock Insert [OM.PC] Stat 07/25/20 13:48 EKG 12 Lead [EKG Documentation Completion] [RC] STAT 07/25/20 15:34 Blood Glucose Check, Bedside [RC] ONETIME Dextrose 50% in Water 50 ml IV ASDIRECTED PRN Glucagon,Human Recombinant [GlucaGen] 1 mg IM ASDIRECTED PRN
[2020-07-25 14:40] LABS: BLOOD UREA NITROGEN,BUN 16 mg/dL (7.0-18.0); CARBON DIOXIDE,CO2 25.4 mmol/L (21.0-32.0); CHLORIDE,CL 98 mmol/L (98-107); GLUCOSE RANDOM 433 mg/dL (74-106); POTASSIUM,K 4.5 mmol/L (3.5-5.1); SODIUM,NA 132 mmol/L (136-148)
--- NOTE | 2020-07-25 14:56 | CR ---
INDICATION: cough TECHNIQUE: Chest 2 views. COMPARISON: None. FINDINGS: Cardiovascular and mediastinum: Heart size and vasculature are normal in caliber and appearance. Mediastinum is within normal limits. Lungs and pleural spaces: Lungs are clear. No sign of infiltrate or mass. No sign of pleural effusion. No pneumothorax. Bones and soft tissues: No significant findings. IMPRESSION: Unremarkable chest. Dictated by: Mnoico Wise MD @ 07/25/2020 14:54:57 (Electronically Signed)
[2020-07-25] MEDS ORDERED: Insulin Regular, Human 100 Units/ML 10 ML Vial SUBCUT ONE (15:34)
[2020-07-25] MEDS ORDERED: Glucagon,Human Recombinant 1 MG Vial IM PRN (15:34)
[2020-07-25] MEDS ORDERED: 50% Dextrose in Water 50 ML Syringe IV PRN (15:34)
[2020-07-25 15:57] VITALS: BP 127/72; PULSE 83
== END 2020-07-25 17:00 | disposition home or self-care (01) ==
LOC: MW.ED 13:00
DX: J32.0 Chronic maxillary sinusitis (principal); E11.9 Type 2 diabetes mellitus without complications; I10 Essential (primary) hypertension; J45.909 Unspecified asthma, uncomplicated; E66.9 Obesity, unspecified; Z68.41 Body mass index [BMI] 40.0-44.9, adult; Z88.0 Allergy status to penicillin; Z88.2 Allergy status to sulfonamides; Z79.84 Long term (current) use of oral hypoglycemic drugs
CPT/HCPCS: 36415; 71046; 80053; 82962; 83036; 84484; 85025; 87651; 93005; 96374; 99284; J1815; J2405; J7030

== ENCOUNTER 2021-04-21 16:09 | Emergency (ER) | payer OTHER ==
[2021-04-21] MEDS ORDERED: Ketorolac 60 MG/2 ML SDV IM ONE (20:20)
[2021-04-21] MEDS ORDERED: Ondansetron 4 MG Tab.DIS PO ONE (20:20)
--- NOTE | 2021-04-21 20:52 | EDM.PDOC ---
ED HPI GENERAL MEDICAL PROBLEM - General Chief Complaint: General Stated Complaint: slipped on ice yesterday Time Seen by Provider: 04/21/21 20:07 Source of Information: Reports: Patient History Limitations: Reports: No Limitations - History of Present Illness INITIAL COMMENTS - FREE TEXT/NARRATIVE: HISTORY AND PHYSICAL: History of present illness: The patient is a 55-year-old man who slipped on the ice yesterday falling backwards striking his right side presents with complaints of significant right shoulder pain right elbow pain and right hip pain last night, along with a headache. Patient also had nausea but no vomiting. Patient states that he had a sore throat yesterday but attributed it to being outside and breathing the cold air. The patient took 2 Aleve at 10 AM this morning. The patient states that his pain is better but his work wanted him to come to the emergency to ensure that he is okay to go back to work. Patient denies any fever, chills, change in vision, syncope or near syncope. Denies any chest pain, back pain, shortness of breath or cough. Denies any abdominal pain, vomiting, diarrhea, constipation or dysuria. Has not noted any blood in urine or stool. Patient has been eating and drinking appropriately. Review of systems: As per history of present illness and below otherwise all systems reviewed and negative. Past medical history: As per history of present illness and as reviewed below otherwise noncontributory. Surgical history: As per history of present illness and as reviewed below otherwise noncontributory. Social history: See social history for further information Family history: As per history of present illness and as reviewed below otherwise noncontributory. Physical exam: General: Well developed and well nourished. Alert and orientated x 3. Nontoxic in appearance and in no acute distress. Vital signs are stable and have been reviewed by me. Nursing notes were reviewed. HEENT: Atraumatic, normocephalic, pupils equal and reactive bilaterally, negative for conjunctival pallor or scleral icterus, mucous membranes moist, TMs normal bilaterally, throat clear, neck supple, nontender, trachea midline. No dr ooling or trismus noted. No meningeal signs. No hot potato voice noted. Lungs: Clear to auscultation bilaterally. No wheezes, rales, or rhonchi. Chest nontender. Normal work of breathing, no accessory muscles used. Heart: S1S2, regular rate and rhythm without overt murmur, gallops, or rubs. No JVD. No peripheral edema Abdomen: Soft, nondistended, generalized tenderness. Normoactive bowel sounds. Negative for masses or costovertebral tenderness. Skin: Intact, warm, dry. No lesions or rashes noted. Hematologic: No petechiae or purpra. Mucosa appropriate color and normal nail bed color and refill. Extremities: Moves all extremities per self without difficulty or deficits, negative for cords or calf pain. Right shoulder and right elbow with mild tenderness. Neurovascular unremarkable. Neuro: Awake, alert, oriented. Cranial nerves II through XII unremarkable. Cerebellum unremarkable. Motor and sensory unremarkable throughout. Exam nonfocal. Psychiatric: Mood and affect are appropriate. Normal thought process. Answering questions appropriately. Notes: *This patient was seen and evaluated during the 2019 SARS-CoV-2 novel coronavirus pandemic period. Community viral transmission is ongoing at time of this encounter and the emergency department is operating under pandemic response procedures. As stated above the patient Is a 55-year-old male who presents to the emergency department who slipped on the ice yesterday falling backwards striking his right side presents with complaints of significant right shoulder pain right elbow pain and right hip pain last night, along with a headache. Patient also had nausea but no vomiting. His exam was benign for any bruising, redness or swelling of the right shoulder, elbow and hip area. The patient's neuro exam was non focal. I have ordered a head CT, right elbow x-ray. I will treat the patient's pain with an injection of Toradol and his nausea with Zofran ODT. Right elbow x-ray Findings/Impression: Bones: Alignment is normal. Small thin bone fragment or spur is emanating from the posterior aspect of the olecranon. An acute fracture fragment is not definite but possible. No other osseous abnormality. Joint spaces: Unremarkable. No degenerative changes and no joint effusion. Soft tissues: Unremarkable. Consulted with Dr. Ratliff regarding case. I will put the patient in in right sling for the acute fracture fragment possibility and have them follow-up with an orthopedic surgeon. I will treat the patient's pain with [employer] 325/5 mg 1 every 4 hours as needed for pain. 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 The patient is agreeable with this discharge plan. Head CT IMPRESSION: Negative noncontrast head CT. The patient was informed of the negative results. Right hip x-ray IMPRESSION: Negative pelvis and right hip. Patient was informed of the negative results and that his discomfort is caused by a contusion. He could use heat or ice whatever makes this feel better. I have talked with the patient about today's findings, in addition to providing specific details for plan of care. Reassessment at the time of disposition de monstrates that the patient is in no acute distress. The patient is stable for discharge, counseling was provided and we discussed in great detail signs and symptoms that would prompt them to return to the Emergency Department. Medication, follow up and supportive care measures were reviewed and discussed. Voices understanding and is agreeable to plan of care. Denies any further questions or concerns at this time. Diagnostics: CBC, CMP, strep, Covid 19, head CT, right elbow and right hip x- ray. Therapeutics: Toradol, Zofran, right arm sling Patient to wear for joint stabilization and patient comfort until follow-up with orthopedic surgeon. Prescription: [employer] 325/5 mg 1 every 4 hours as needed for pain #12 Impression: Possible right elbow fragment fracture, contusion Plan: 1. You were evaluated today on an emergent basis. Your complaints of right elbow and hip pain were evaluated on x-ray. Your hip x-ray was normal. Your right elbow x-ray showed a bony fragment broken off. This is what is causing your elbow pain. You will need to wear an arm sling until you follow-up with an orthopedic surgeon. 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 I have given you a written prescription for [employer] 325/5 1 every 4 hours as needed for pain. This can cause constipation and if you take it I would suggest starting a stool softener. You are unable to drive while taking this medication. 2. You can alternate Tylenol and ibuprofen as needed for pain and fever management. 3. We encourage you to follow up with your primary care provider and/or recommended specialist in the next few days for re-evaluation and further care/management. 4. If your symptoms should worsen, new symptoms develop or any of the signs and symptoms we discussed should arise please return to the emergency room or call 911 (if needed). Definitive disposition and diagnosis as appropriate pending reevaluation and review of above. - Related Data Allergies Allergy/AdvReac Type Severity Reaction Status Date / Time Penicillins Allergy Swelling Verified 04/21/21 17:13 Sulfa (Sulfonamide Allergy Diarrhea Verified 04/21/21 17:13 Antibiotics) Home Meds: Home Meds . [No Known Home Meds] 04/21/21 [History] Past Medical History - Past Health History Medical/Surgical History: Denies Medical/Surgical History HEENT History: Reports: Allergic Rhinitis, Sinusitis Other HEENT History: wears glasses, Cardiovascular History: Reports: High Cholesterol, Hypertension Respiratory History: Reports: Asthma, Sleep Apnea Other Respiratory History: uses CPAP Gastrointestinal History: Reports: GERD Other Gastrointestinal History: occasional gastric reflux Musculoskeletal History: Reports: Back Pain, Chronic Neurological History: Reports: Migraines, Vertigo Psychiatric History: Reports: Anxiety, Depression Endocrine/Metabolic History: Reports: Obesity/BMI 30+ Dermatologic History: Reports: Other (See Below) Other Dermatologic History: rash to groin area - Infectious Disease History Infectious Disease History: Reports: Chicken Pox - Past Surgical History Head Surgeries/Procedures: Reports: None HEENT Surgical History: Reports: Eye Surgery Other HEENT Surgeries/Procedures: hx of corrective eye surgery Musculoskeletal Surgical History: Reports: Other (See Below) Other Musculoskeletal Surgeries/Procedures:: hx wrist surgery Social & Family History - Family History Family Medical History: No Pertinent Family History - Tobacco Use Tobacco Use Status *Q: Never Tobacco User Second Hand Smoke Exposure: Yes - Caffeine Use Caffeine Use: Reports: None - Recreational Drug Use Recreational Drug Use: No ED ROS GENERAL - Review of Systems Review Of Systems: Comprehensive ROS is negative, except as noted in HPI. ED EXAM, GENERAL - Physical Exam Exam: See Below (See dictation) Course - Vital Signs Last Recorded V/S: Last Vital Signs Temp 97.7 F 04/21/21 17:14 Pulse 81 04/21/21 22:00 Resp 20 04/21/21 22:00 BP 131/95 H 04/21/21 22:00 Pulse Ox 99 04/21/21 22:00 - Orders/Labs/Meds Orders: Active Orders 24 hr Category Date Time Status DME for Discharge [COMM] Stat Oth 04/21/21 21:56 Ordered Labs: Laboratory Tests 04/21/21 04/21/21 04/21/21 Range/Units 20:31 20:31 20:34 WBC 7.70 (4.0-11.0) K/uL RBC 4.30 L (4.50-5.90) M/uL Hgb 14.8 (13.0-17.0) g/dL Hct 42.6 (38.0-50.0) % MCV 99.1 H (80.0-98.0) fL MCH 34.4 H (27.0-32.0) pg MCHC 34.7 (31.0-37.0) g/dL RDW Std Deviation 46.4 (28.0-62.0) fl RDW Coeff of Darcy 13 (11.0-15.0) % Plt Count 174 (150-400) K/uL MPV 11.10 (7.40-12.00) fL Neut % (Auto) 40.2 L (48.0-80.0) % Lymph % (Auto) 44.5 H (16.0-40.0) % Turner % (Auto) 12.3 (0.0-15.0) % Eos % (Auto) 2.6 (0.0-7.0) % Baso % (Auto) 0.4 (0.0-1.5) % Neut # (Auto) 3.1 (1.4-5.7) K/uL Lymph # (Auto) 3.4 H (0.6-2.4) K/uL Turner # (Auto) 1.0 H (0.0-0.8) K/uL Eos # (Auto) 0.2 (0.0-0.7) K/uL Baso # (Auto) 0.0 (0.0-0.1) K/uL Nucleated RBC % 0.0 /100WBC Nucleated RBCs # 0 K/uL Sodium 139 (136-148) mmol/L Potassium 4.2 (3.5-5.1) mmol/L Chloride 103 (98-107) mmol/L Carbon Dioxide 26.4 (21.0-32.0) mmol/L BUN 18 (7.0-18.0) mg/dL Creatinine 1.0 (0.8-1.3) mg/dL Est Cr Clr Drug Dosing 79.80 mL/min Estimated GFR (MDRD) > 60.0 ml/min Glucose 146 H (74-106) mg/dL Calcium 9.2 (8.5-10.1) mg/dL Total Bilirubin 0.3 (0.2-1.0) mg/dL AST 50 H (15-37) IU/L ALT 96 H (14-63) IU/L Alkaline Phosphatase 71 (46-116) U/L Total Protein 7.5 (6.4-8.2) g/dL Albumin 3.6 (3.4-5.0) g/dL Globulin 3.9 (2.6-4.0) g/dL Albumin/Globulin Ratio 0.9 (0.9-1.6) Influenza Type A RNA NEGATIVE (NEGATIVE) Influenza Type B RNA NEGATIVE (NEGATIVE) SARS-CoV-2 RNA (CODIE) NEGATIVE (NEGATIVE) Group A Strep (PCR) (NOT DETECT) 04/21/21 Range/Units 20:34 WBC (4.0-11.0) K/uL RBC (4.50-5.90) M/uL Hgb (13.0-17.0) g/dL Hct (38.0-50.0) % MCV (80.0-98.0) fL MCH (27.0-32.0) pg MCHC (31.0-37.0) g/dL RDW Std Deviation (28.0-62.0) fl RDW Coeff of Darcy (11.0-15.0) % Plt Count (150-400) K/uL MPV (7.40-12.00) fL Neut % (Auto) (48.0-80.0) % Lymph % (Auto) (16.0-40.0) % Turner % (Auto) (0.0-15.0) % Eos % (Auto) (0.0-7.0) % Baso % (Auto) (0.0-1.5) % Neut # (Auto) (1.4-5.7) K/uL Lymph # (Auto) (0.6-2.4) K/uL Turner # (Auto) (0.0-0.8) K/uL Eos # (Auto) (0.0-0.7) K/uL Baso # (Auto) (0.0-0.1) K/uL Nucleated RBC % /100WBC Nucleated RBCs # K/uL Sodium (136-148) mmol/L Potassium (3.5-5.1) mmol/L Chloride (98-107) mmol/L Carbon Dioxide (21.0-32.0) mmol/L BUN (7.0-18.0) mg/dL Creatinine (0.8-1.3) mg/dL Est Cr Clr Drug Dosing mL/min Estimated GFR (MDRD) ml/min Glucose (74-106) mg/dL Calcium (8.5-10.1) mg/dL Total Bilirubin (0.2-1.0) mg/dL AST (15-37) IU/L ALT (14-63) IU/L Alkaline Phosphatase (46-116) U/L Total Protein (6.4-8.2) g/dL Albumin (3.4-5.0) g/dL Globulin (2.6-4.0) g/dL Albumin/Globulin Ratio (0.9-1.6) Influenza Type A RNA (NEGATIVE) Influenza Type B RNA (NEGATIVE) SARS-CoV-2 RNA (CODIE) (NEGATIVE) Group A Strep (PCR) NOT DETECTED (NOT DETECT) Meds: Medications Discontinued Medications Generic Name Dose Route Start Last Admin Trade Name Freq PRN Reason Stop Dose Admin Hydrocodone Bitart/Acetaminophen 1 tab 04/21/21 21:48 04/21/21 22:14 Acetaminophen/Hydrocodone 325-10 Mg Tab PO 04/21/21 21:49 1 tab ONETIME ONE Administration Ketorolac Tromethamine 60 mg 04/21/21 20:20 04/21/21 20:31 Ketorolac 60 Mg/2 Ml Sdv IM 04/21/21 20:21 60 mg ONETIME ONE Administration Ondansetron HCl 4 mg 04/21/21 20:20 04/21/21 20:31 Ondansetron 4 Mg Tab.Dis PO 04/21/21 20:21 4 mg ONETIME ONE Administration Departure - Departure Time of Disposition: 22:03 Disposition: Home, Self-Care 01 Clinical Impression: Contusion Qualifiers: Encounter type: initial encounter Contusion area: hip Laterality: right Qualified Code(s): S70.01XA - Contusion of right hip, initial encounter Elbow contusion Qualifiers: Encounter type: initial encounter Laterality: right Qualified Code(s): S50.01XA - Contusion of right elbow, initial encounter - Discharge Information *PRESCRIPTION DRUG MONITORING PROGRAM REVIEWED*: No *COPY OF PRESCRIPTION DRUG MONITORING REPORT IN PATIENT MICHELLE: No Instructions: Elbow Contusion Referrals: Josafat Arevalo NP [Primary Care Provider] - Forms: ED Department Discharge Additional Instructions: The following information is given to patients seen in the emergency department who are being discharged to home. This information is to outline your options for follow-up care. We provide all patients seen in our emergency department with a follow-up referral. The need for follow-up, as well as the timing and circumstances, are variable depending upon the specifics of your emergency department visit. If you don't have a primary care physician on staff, we will provide you with a referral. We always advise you to contact your personal physician following an emergency department visit to inform them of the circumstance of the visit and for follow-up with them and/or the need for any referrals to a consulting specialist. The emergency department will also refer you to a specialist when appropriate. This referral assures that you have the opportunity for follow-up care with a specialist. All of these measure are taken in an effort to provide you with optimal care, which includes your follow-up. Under all circumstances we always encourage you to contact your private physician who remains a resource for coordinating your care. When calling for follow-up care, please make the office aware that this follow-up is from your recent emergency room visit. If for any reason you are refused follow-up, please contact the [facility] Emergency Department at and asked to speak to the emergency department charge nurse. [facility] [address] [place] [address], [address] [place] [address] [facility] [address] [place] [id number] Plan: 1. You were evaluated today on an emergent basis. Your complaints of right elbow and hip pain were evaluated on x-ray. Your hip x-ray was normal. Your right elbow x-ray showed a bony fragment broken off. This is what is causing your elbow pain. You will need to wear an arm sling until you follow-up with an orthopedic surgeon. 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 I have given you a written prescription for [employer] 325/5 1 every 4 hours as needed for pain. This can cause constipation and if you take it I would suggest starting a stool softener. You are unable to drive while taking this medication. 2. You can alternate Tylenol and ibuprofen as needed for pain and fever m anagement. 3. We encourage you to follow up with your primary care provider and/or recommended specialist in the next few days for re-evaluation and further care/management. 4. If your symptoms should worsen, new symptoms develop or any of the signs and symptoms we discussed should arise please return to the emergency room or call 911 (if needed). Sepsis Event Note (ED) - Evaluation Sepsis Screening Result: No Definite Risk - My Orders Last 24 Hours: My Active Orders 04/21/21 21:56 DME for Discharge [COMM] Stat - Assessment/Plan Last 24 Hours: My Active Orders 04/21/21 21:56 DME for Discharge [COMM] Stat
--- NOTE | 2021-04-21 20:57 | CR ---
Indication: Trauma. Technique: Right elbow 3 views. Comparison: None. Findings/Impression: Bones: Alignment is normal. Small thin bone fragment or spur is emanating from the posterior aspect of the olecranon. An acute fracture fragment is not definite but possible. No other osseous abnormality. Joint spaces: Unremarkable. No degenerative changes and no joint effusion. Soft tissues: Unremarkable. Dictated by Ortiz Rogel MD @ 04/21/2021 8:56:42 PM (Electronically Signed)
[2021-04-21 20:58] LABS: BLOOD UREA NITROGEN,BUN 18 mg/dL (7.0-18.0); CARBON DIOXIDE,CO2 26.4 mmol/L (21.0-32.0); CHLORIDE,CL 103 mmol/L (98-107); GLUCOSE RANDOM 146 mg/dL (74-106); POTASSIUM,K 4.2 mmol/L (3.5-5.1); SODIUM,NA 139 mmol/L (136-148)
[2021-04-21 21:20] LABS: CORONAVIRUS COVID-19 NAA NEGATIVE (NEGATIVE); INFLUENZA A NAA NEGATIVE (NEGATIVE); INFLUENZA B NAA NEGATIVE (NEGATIVE)
--- NOTE | 2021-04-21 21:37 | CR ---
INDICATION: Trauma. Fall. Right hip pain. TECHNIQUE: AP pelvis and 2 views of the right hip. FINDINGS: No acute pelvic or hip fracture or dislocation identified. Calcified pelvic phleboliths. Dedicated views of the right hip are within normal limits. IMPRESSION: Negative pelvis and right hip. Dictated by Mark Zaldivar MD @ 04/21/2021 9:36:03 PM (Electronically Signed)
--- NOTE | 2021-04-21 21:43 | CT ---
INDICATION: Trauma. Fall. Pain. TECHNIQUE: Noncontrast head CT. FINDINGS: No acute intracranial hemorrhage or hydrocephalus. No mass effect or shift of midline structures. No evidence for ischemic change or infarction. The manzanares-white matter differentiation is preserved. The calvarium and skull base are unremarkable. The included paranasal sinuses and mastoid air cells are clear with the exception of the right mastoid air cells some of which are partly opacified and less well pneumatized likely on a congenital basis. IMPRESSION: Negative noncontrast head CT. Please note that all CT scans at this facility use dose modulation, iterative reconstruction, and/or weight-based dosing when appropriate to reduce radiation dose to as low as reasonably achievable. Dictated by Mark Zaldivar MD @ 04/21/2021 9:41:54 PM (Electronically Signed)
[2021-04-21] MEDS ORDERED: Acetaminophen/HYDROcodone 325-10 MG Tab PO ONE (21:48)
[2021-04-21 23:31] VITALS: BP 131/95; PULSE 81
== END 2021-04-21 22:21 | disposition home or self-care (01) ==
LOC: MW.ED 16:09
DX: S70.01XA Contusion of right hip, initial encounter (principal); S50.01XA Contusion of right elbow, initial encounter; E78.00 Pure hypercholesterolemia, unspecified; I10 Essential (primary) hypertension; E66.9 Obesity, unspecified; Z68.38 Body mass index [BMI] 38.0-38.9, adult; Z88.0 Allergy status to penicillin; Z88.2 Allergy status to sulfonamides; Z20.822 Contact with and (suspected) exposure to COVID-19; W18.09XA Striking against other object with subsequent fall, initial encounter
CPT/HCPCS: 0240U; 36415; 70450; 73080; 73502; 80053; 85025; 87651; 96372; 99284; A9270; J1885

== ENCOUNTER 2021-05-19 15:40 | Emergency (ER) | payer OTHER ==
[2021-05-19] MEDS ORDERED: Sodium Chloride 0.9% 2.5 ML Syringe FLUSH PRN (17:51)
[2021-05-19] MEDS ORDERED: Sodium Chloride 0.9% 10 ML Syringe FLUSH PRN (17:51)
[2021-05-19] MEDS ORDERED: Sodium Chloride 0.9% 1,000 ML IV ONE (17:52)
[2021-05-19 18:33] LABS: BLOOD UREA NITROGEN,BUN 9 mg/dL (7.0-18.0); CARBON DIOXIDE,CO2 24.3 mmol/L (21.0-32.0); CHLORIDE,CL 105 mmol/L (98-107); GLUCOSE RANDOM 127 mg/dL (74-106); POTASSIUM,K 4.2 mmol/L (3.5-5.1); SODIUM,NA 139 mmol/L (136-148)
[2021-05-19] MEDS ORDERED: Iopamidol 755 MG/ML 500 ML Multipack Bottle IVPUSH ONE (18:41)
[2021-05-19 19:28] VITALS: BP 115/72; PULSE 72
== END 2021-05-19 19:33 | disposition home or self-care (01) ==
LOC: MW.ED 15:40
DX: R13.10 Dysphagia, unspecified (principal); E66.9 Obesity, unspecified; Z68.30 Body mass index [BMI] 30.0-30.9, adult; Z88.0 Allergy status to penicillin; Z88.2 Allergy status to sulfonamides
CPT/HCPCS: 36415; 70491; 70491-26; 80053; 85025; 93005; 99284-25; J7030; Q9967

== ENCOUNTER 2021-06-09 15:19 | Emergency (ER) | payer OTHER ==
[2021-06-09] MEDS ORDERED: Aspirin 81 MG Tab.Chew PO ONE (15:38)
[2021-06-09] MEDS ORDERED: Ketorolac 30 MG/ML SDV IVPUSH ONE (15:38)
[2021-06-09 16:04] LABS: BLOOD UREA NITROGEN,BUN 18 mg/dL (7.0-18.0); CARBON DIOXIDE,CO2 23.1 mmol/L (21.0-32.0); CHLORIDE,CL 100 mmol/L (98-107); GLUCOSE RANDOM 276 mg/dL (74-106); POTASSIUM,K 4.4 mmol/L (3.5-5.1); SODIUM,NA 133 mmol/L (136-148)
[2021-06-09 17:25] VITALS: BP 116/69; PULSE 74
== END 2021-06-09 17:20 | disposition home or self-care (01) ==
LOC: MW.ED 15:19
DX: R07.89 Other chest pain (principal); M25.512 Pain in left shoulder; R73.9 Hyperglycemia, unspecified; E78.00 Pure hypercholesterolemia, unspecified; I10 Essential (primary) hypertension; E66.9 Obesity, unspecified; Z68.38 Body mass index [BMI] 38.0-38.9, adult; Z88.0 Allergy status to penicillin; Z88.2 Allergy status to sulfonamides
CPT/HCPCS: 36415; 71045; 73030; 80053; 84484; 85025; 93005; 93971; 96374; 99285; A9270; J1885

== ENCOUNTER 2021-06-13 14:00 | Emergency (ER) | payer OTHER ==
[2021-06-13] MEDS ORDERED: Sodium Chloride 0.9% 1,000 ML IV ONE (14:32)
[2021-06-13 15:27] LABS: BLOOD UREA NITROGEN,BUN 18 mg/dL (7.0-18.0); CARBON DIOXIDE,CO2 24.9 mmol/L (21.0-32.0); CHLORIDE,CL 100 mmol/L (98-107); GLUCOSE RANDOM 296 mg/dL (74-106); POTASSIUM,K 4.2 mmol/L (3.5-5.1); SODIUM,NA 133 mmol/L (136-148)
[2021-06-13 15:54] VITALS: BP 121/70; PULSE 72
== END 2021-06-13 15:55 | disposition home or self-care (01) ==
LOC: MW.ED 14:00
DX: R73.9 Hyperglycemia, unspecified (principal); E78.00 Pure hypercholesterolemia, unspecified; I10 Essential (primary) hypertension; K21.9 Gastro-esophageal reflux disease without esophagitis; E66.9 Obesity, unspecified; Z68.36 Body mass index [BMI] 36.0-36.9, adult; Z88.0 Allergy status to penicillin; Z88.2 Allergy status to sulfonamides; Z86.16 Personal history of COVID-19
CPT/HCPCS: 36415; 71045; 80053; 82009; 82947; 83605; 84484; 85025; 93005; 99285; J7030

== ENCOUNTER 2021-11-29 13:58 | Emergency (ER) | payer OTHER ==
[2021-11-29] MEDS ORDERED: Sodium Chloride 0.9% 2.5 ML Syringe FLUSH PRN (14:10)
[2021-11-29] MEDS ORDERED: Sodium Chloride 0.9% 10 ML Syringe FLUSH PRN (14:10)
[2021-11-29 14:48] LABS: CARBON DIOXIDE,CO2 25.4 mmol/L (21.0-32.0); POTASSIUM,K 4.3 mmol/L (3.5-5.1)
[2021-11-29 14:56] LABS: CORONAVIRUS COVID-19 NAA NEGATIVE (NEGATIVE); INFLUENZA A NAA NEGATIVE (NEGATIVE); INFLUENZA B NAA NEGATIVE (NEGATIVE)
[2021-11-29 18:20] VITALS: BP 132/77; PULSE 73
== END 2021-11-29 17:55 | disposition home or self-care (01) ==
LOC: MW.ED 13:58
DX: R07.89 Other chest pain (principal); E78.00 Pure hypercholesterolemia, unspecified; I10 Essential (primary) hypertension; E66.9 Obesity, unspecified; Z68.41 Body mass index [BMI] 40.0-44.9, adult; Z88.0 Allergy status to penicillin; Z88.2 Allergy status to sulfonamides; Z20.822 Contact with and (suspected) exposure to COVID-19
CPT/HCPCS: 0240U; 36415; 71045; 80053; 84484; 85025; 93005; 99285; J3490

== ENCOUNTER 2021-12-01 16:44 | Emergency (ER) | payer OTHER ==
[2021-12-01 16:48] VITALS: BP 121/68; PULSE 90
[2021-12-01] MEDS ORDERED: Ketorolac 30 MG/ML SDV IVPUSH ONE (17:16)
[2021-12-01] MEDS ORDERED: Sodium Chloride 0.9% 1,000 ML IV ONE (17:16)
[2021-12-01 17:30] LABS: CARBON DIOXIDE,CO2 24.1 mmol/L (21.0-32.0); POTASSIUM,K 4.8 mmol/L (3.5-5.1)
== END 2021-12-01 19:46 | disposition home or self-care (01) ==
LOC: MW.ED 16:44
DX: J40 Bronchitis, not specified as acute or chronic (principal); I10 Essential (primary) hypertension; E66.9 Obesity, unspecified; Z68.30 Body mass index [BMI] 30.0-30.9, adult; Z88.0 Allergy status to penicillin; Z88.2 Allergy status to sulfonamides; Z79.899 Other long term (current) drug therapy
CPT/HCPCS: 36415; 71046; 80053; 84443; 84484; 85025; 85379; 93005; 96361; 96374; 99285; J1885; J7030; 93010; 99284

== ENCOUNTER 2022-03-14 16:14 | Emergency (ER) | payer OTHER ==
[2022-03-14 16:29] VITALS: BP 147/76
[2022-03-14] MEDS ORDERED: Ketorolac 60 MG/2 ML SDV IM ONE (16:40)
[2022-03-14 17:20] LABS: CORONAVIRUS COVID-19 NAA NEGATIVE (NEGATIVE); INFLUENZA A NAA NEGATIVE (NEGATIVE); INFLUENZA B NAA NEGATIVE (NEGATIVE)
[2022-03-14 17:24] LABS: CARBON DIOXIDE,CO2 25.8 mmol/L (21.0-32.0); POTASSIUM,K 3.9 mmol/L (3.5-5.1)
[2022-03-14 18:26] VITALS: PULSE 78
== END 2022-03-14 18:25 | disposition home or self-care (01) ==
LOC: MW.ED 16:14
DX: J40 Bronchitis, not specified as acute or chronic (principal); I10 Essential (primary) hypertension; R73.9 Hyperglycemia, unspecified; R74.01 Elevation of levels of liver transaminase levels; E78.00 Pure hypercholesterolemia, unspecified; E66.9 Obesity, unspecified; Z68.38 Body mass index [BMI] 38.0-38.9, adult; Z88.0 Allergy status to penicillin; Z20.822 Contact with and (suspected) exposure to COVID-19; Z88.2 Allergy status to sulfonamides
CPT/HCPCS: 0240U; 36415; 71045; 73502; 73562; 80053; 84484; 85025; 87651; 93005; 96372; 99285; J1885

== ENCOUNTER 2022-04-13 13:03 | Emergency (ER) | payer OTHER ==
[2022-04-13 17:01] LABS: CORONAVIRUS COVID-19 NAA NEGATIVE (NEGATIVE); INFLUENZA A NAA NEGATIVE (NEGATIVE); INFLUENZA B NAA NEGATIVE (NEGATIVE); RESPIRATORY SYNCYTIAL VIR NAA NEGATIVE (NEGATIVE)
[2022-04-13 17:57] LABS: CARBON DIOXIDE,CO2 26.8 mmol/L (21.0-32.0)
[2022-04-13 18:33] LABS: HEMOGLOBIN A1C 11.4 %
[2022-04-13 19:11] VITALS: BP 132/65; PULSE 89
== END 2022-04-13 19:10 | disposition home or self-care (01) ==
LOC: MW.ED 13:03
DX: R07.89 Other chest pain (principal); E11.9 Type 2 diabetes mellitus without complications; R53.83 Other fatigue; E66.9 Obesity, unspecified; Z68.37 Body mass index [BMI] 37.0-37.9, adult; Z88.0 Allergy status to penicillin; Z88.1 Allergy status to other antibiotic agents; Z88.2 Allergy status to sulfonamides; Z79.84 Long term (current) use of oral hypoglycemic drugs; Z20.822 Contact with and (suspected) exposure to COVID-19
CPT/HCPCS: 0241U; 36415; 71045; 80053; 83036; 84484; 85025; 85379; 93005; 99285

== ENCOUNTER 2022-07-01 23:38 | Emergency (ER) | payer OTHER ==
[2022-07-01] MEDS ORDERED: Acetaminophen 500 MG Tab PO ONE (23:55)
[2022-07-01] MEDS ORDERED: Ondansetron 4 MG Tab.DIS PO ONE (23:55)
[2022-07-02 01:07] VITALS: BP 131/74; PULSE 71
== END 2022-07-02 01:05 | disposition home or self-care (01) ==
LOC: MW.ED 23:38
DX: S06.0XAA Concussion with loss of consciousness status unknown, initial encounter (principal); I10 Essential (primary) hypertension; E66.9 Obesity, unspecified; Z68.35 Body mass index [BMI] 35.0-35.9, adult; Z88.0 Allergy status to penicillin; Z88.1 Allergy status to other antibiotic agents; Z88.2 Allergy status to sulfonamides; W01.0XXA Fall on same level from slipping, tripping and stumbling without subsequent striking against object, initial encounter
CPT/HCPCS: 70450; 99283; A9270

== ENCOUNTER 2022-07-03 15:50 | Emergency (ER) | payer OTHER ==
[2022-07-03 16:43] VITALS: BP 118/63; PULSE 77
== END 2022-07-03 16:40 | disposition home or self-care (01) ==
LOC: MW.ED 15:50
DX: Z71.1 Person with feared health complaint in whom no diagnosis is made (principal); S06.0X0D Concussion without loss of consciousness, subsequent encounter; I10 Essential (primary) hypertension; J45.909 Unspecified asthma, uncomplicated; E11.9 Type 2 diabetes mellitus without complications; E66.9 Obesity, unspecified; Z68.35 Body mass index [BMI] 35.0-35.9, adult; Z88.8 Allergy status to other drugs, medicaments and biological substances; Z88.1 Allergy status to other antibiotic agents; Z88.0 Allergy status to penicillin; Z88.2 Allergy status to sulfonamides; W00.0XXD Fall on same level due to ice and snow, subsequent encounter
CPT/HCPCS: 99283

== ENCOUNTER 2022-11-15 15:13 | Emergency (ER) | payer OTHER ==
[2022-11-15] MEDS ORDERED: Sodium Chloride 0.9% 10 ML Syringe FLUSH PRN (16:03)
[2022-11-15] MEDS ORDERED: Sodium Chloride 0.9% 2.5 ML Syringe FLUSH PRN (16:03)
[2022-11-15 16:22] LABS: BASOPHILS PERCENT AUTO 0.4 % (0.0-1.5); EOSINOPHILS ABSOLUTE AUTO 0.1 K/uL (0.0-0.7); EOSINOPHILS PERCENT AUTO 1.5 % (0.0-7.0); HEMATOCRIT 42.5 % (38.0-50.0); HEMOGLOBIN 14.8 g/dL (13.0-17.0); LYMPHOCYTES ABSOLUTE AUTO 3.3 K/uL (0.6-2.4); LYMPHOCYTES PERCENT AUTO 41.2 % (16.0-40.0); MEAN CORPUSCULAR HEMOGLOBIN 33.6 pg (27.0-32.0); MEAN CORPUSCULAR HGB CONC 34.8 g/dL (31.0-37.0); MEAN CORPUSCULAR VOLUME 96.4 fL (80.0-98.0); MONOCYTES ABSOLUTE AUTO 0.8 K/uL (0.0-0.8); MONOCYTES PERCENT AUTO 9.3 % (0.0-15.0); NEUTROPHILS ABSOLUTE AUTO 3.8 K/uL (1.4-5.7); NEUTROPHILS PERCENT AUTO 47.6 % (48.0-80.0); NRBC ABSOLUTE 0 K/uL; PLATELET COUNT,PLT 162 K/uL (150-400); RED BLOOD CELL COUNT 4.41 M/uL (4.50-5.90); WHITE BLOOD CELL COUNT,WBC 8.04 K/uL (4.0-11.0)
[2022-11-15] MEDS ORDERED: Sodium Chloride 0.9% 1,000 ML IV STA (16:40)
[2022-11-15 16:52] VITALS: BP 105/50
[2022-11-15 17:00] LABS: A/G RATIO 0.9 (0.9-1.6); ALBUMIN 3.3 g/dL (3.4-5.0); BILIRUBIN TOTAL 0.5 mg/dL (0.2-1.0); CARBON DIOXIDE,CO2 23.9 mmol/L (21.0-32.0); CREATININE 0.9 mg/dL (0.8-1.3); EST CRCL DRUG DOSING (CG) 90.56 mL/min; POTASSIUM,K 4.1 mmol/L (3.5-5.1); PROTEIN TOTAL,TP 6.8 g/dL (6.4-8.2)
[2022-11-15 17:01] LABS: MAGNESIUM 1.7 mg/dL (1.8-2.4)
[2022-11-15] MEDS ORDERED: Magnesium Sulfate/Water 2 GM in Premix Bag 1 BAG IV STA (17:05)
[2022-11-15] MEDS ORDERED: Iopamidol 755 Mg/ML 100 ML Bottle IVPUSH ONE (17:06)
[2022-11-15 19:40] VITALS: PULSE 65
== END 2022-11-15 19:38 | disposition home or self-care (01) ==
LOC: MW.ED 15:13
DX: K74.69 Other cirrhosis of liver (principal); K57.30 Diverticulosis of large intestine without perforation or abscess without bleeding; E83.42 Hypomagnesemia; Z86.16 Personal history of COVID-19; E11.9 Type 2 diabetes mellitus without complications; J45.909 Unspecified asthma, uncomplicated; Z88.0 Allergy status to penicillin; Z88.8 Allergy status to other drugs, medicaments and biological substances; Z88.1 Allergy status to other antibiotic agents; Z88.2 Allergy status to sulfonamides
CPT/HCPCS: 36415; 74177; 80053; 83690; 83735; 84484; 85025; 93005; 96361; 96365; 99284; J3475; J3490; J7030; Q9967; 93010

== ENCOUNTER 2024-12-25 15:36 | Emergency (ER) | payer OTHER ==
[2024-12-25] MEDS: Orphenadrine 60 MG/2 ML Inj IM ONE (16:11)
[2024-12-25] MEDS: Ketorolac 30 MG/ML SDV IM ONE (16:12)
[2024-12-25 17:26] VITALS: BP 112/67; PULSE 83
== END 2024-12-25 17:26 | disposition home or self-care (01) ==
LOC: MW.ED 15:36
DX: M54.50 Low back pain, unspecified (principal); Z87.891 Personal history of nicotine dependence; Z75.3 Unavailability and inaccessibility of health-care facilities; Z88.8 Allergy status to other drugs, medicaments and biological substances; Z88.2 Allergy status to sulfonamides; Z88.0 Allergy status to penicillin; Z79.899 Other long term (current) drug therapy; Z79.4 Long term (current) use of insulin; E10.9 Type 1 diabetes mellitus without complications
CPT/HCPCS: 72110; 96372; 99283; A9270; J1100; J1885; J2360

== ENCOUNTER 2025-02-05 15:02 | Emergency (ER) | payer OTHER ==
[2025-02-05] MEDS ORDERED: Ketorolac 30 MG/ML SDV IVPUSH ONE (16:58)
[2025-02-05] MEDS: Ketorolac 30 MG/ML SDV IM ONE (17:38)
[2025-02-05 17:49] LABS: APPEARANCE,URINE CLEAR; GLUCOSE,URINE 250 mg/dL (NEGATIVE); OCCULT BLOOD,URINE NEGATIVE (NEGATIVE)
[2025-02-05 18:42] VITALS: BP 139/88; PULSE 79
== END 2025-02-05 18:41 | disposition home or self-care (01) ==
LOC: MW.ED 15:02
DX: M54.9 Dorsalgia, unspecified (principal); E11.9 Type 2 diabetes mellitus without complications; Z75.3 Unavailability and inaccessibility of health-care facilities; Z88.8 Allergy status to other drugs, medicaments and biological substances; Z88.2 Allergy status to sulfonamides; Z88.0 Allergy status to penicillin; Z79.4 Long term (current) use of insulin; Z79.899 Other long term (current) drug therapy
CPT/HCPCS: 72128; 72131; 81003; 96372; 99284; J1885

== ENCOUNTER 2025-03-19 14:39 | Emergency (ER) | payer OTHER ==
[2025-03-19 15:02] VITALS: BP 144/68; PULSE 95
== END 2025-03-19 17:30 | disposition home or self-care (01) ==
LOC: MW.ED 14:39
DX: M77.9 Enthesopathy, unspecified (principal); E11.9 Type 2 diabetes mellitus without complications; Z75.3 Unavailability and inaccessibility of health-care facilities; Z79.899 Other long term (current) drug therapy; Z79.4 Long term (current) use of insulin
CPT/HCPCS: 73030; 99283; A9270